=== PATIENT | female | born 1990 | race Caucasian/White ===

== ENCOUNTER 2023-07-09 17:00 | Outpatient (CLI) | payer BC | END 2023-07-09 17:01 | disposition home or self-care (01) | LOC: SLEEPLAB 17:00 | PROVIDERS: ATTEND Internal Medicine | DX: G47.33 Obstructive sleep apnea (adult) (pediatric) (principal); R53.83 Other fatigue; E66.9 Obesity, unspecified; R06.83 Snoring; E11.9 Type 2 diabetes mellitus without complications; E28.2 Polycystic ovarian syndrome; Z68.37 Body mass index [BMI] 37.0-37.9, adult | CPT/HCPCS: 95800 ==